=== PATIENT | female | born 1975 | race Caucasian/White ===

== ENCOUNTER 2018-01-19 20:04 | Emergency (ER) | payer OTHER ==
[~2018-01-19] VITALS: Ht 160 cm; Wt 86.2 kg
[~2018-01-19 20:04] MED LIST: ACETAMINOPHEN325 M1 PO; AMOXICILLIN875 MG PO; LORTABELXR PO; ZPAK PO; [UNRECOGNIZED DRUG - OTHER]
[2018-01-19] MEDS ORDERED: PROMS25 WY RECTAL (21:20)
[2018-01-19] MEDS ORDERED: BUTALB-APAP-CA1 EACH PO (21:20)
[2018-01-19 21:40] VITALS: BP 127/82
== END 2018-01-19 21:41 | disposition home or self-care (01) ==
LOC: ER 20:04
DX: G43.909 Migraine, unspecified, not intractable, without status migrainosus (principal); F17.210 Nicotine dependence, cigarettes, uncomplicated